=== PATIENT | female | born 1935 | race Caucasian/White ===

== ENCOUNTER → 2017-08-11 | Outpatient (CLI) | payer MEDICARE, OTHER, MEDICAID ==
[~2017-08-11] MED LIST: ACE3 PO; ACET-2031 PO; ASP325 PO; BRIN8DRO OP; CITRAZINE PO; DAB150 PO; DICL1ADH TP; DIP25 PO; DIPH-740 PO; DUL30 PO; ESC10 PO; ESOM40CA42 PO; FLEXOR PATCH TP; IBU800 PO; IRBE1TAB24 PO; LATOD OS; LOPE-84 PO; LOR5 PO; LOSA-51 PO; MELO-149 PO; METF-527 PO; METO25TA91 PO; METO50TA PO; MOM PO; NIT3 PO; OMEP-218 PO; OXYC1TAB54 PO; PER PO; PRED5DRO34 OP; SIMV-44 PO; WARF-18 PO; WARF7.5T32 PO
[2017-08-11 08:36] LABS: LDL CHOLESTEROL 70 mg/dl
== END ==
LOC: ZZSPRING 01:51
PROVIDERS: ATTEND Family Medicine
DX: E78.5 Hyperlipidemia, unspecified (principal)
CPT/HCPCS: 36415; 82040; 82247; 82310; 82374; 82435; 82465; 82565; 82947; 83718; 84075; 84132; 84155; 84295; 84450; 84460; 84478; 84520

== ENCOUNTER → 2017-08-11 | Outpatient (CLI) | payer MEDICARE, OTHER, MEDICAID ==
[2017-08-11 08:39] LABS: INR 2.39
== END ==
LOC: ZZSPRING 01:51
PROVIDERS: ATTEND Internal Medicine Cardiovascular Disease
DX: Z51.81 Encounter for therapeutic drug level monitoring (principal); I48.0 Paroxysmal atrial fibrillation; Z79.01 Long term (current) use of anticoagulants
CPT/HCPCS: 85610

== ENCOUNTER → 2017-08-25 | Outpatient (CLI) | payer MEDICARE, OTHER, MEDICAID ==
[2017-08-25 08:50] LABS: INR 1.88
== END ==
LOC: ZZSPRING 03:13
PROVIDERS: ATTEND Internal Medicine
DX: Z51.81 Encounter for therapeutic drug level monitoring (principal); I48.0 Paroxysmal atrial fibrillation; Z79.01 Long term (current) use of anticoagulants
CPT/HCPCS: 36415; 85610

== ENCOUNTER → 2017-09-08 | Outpatient (CLI) | payer MEDICARE, OTHER, MEDICAID ==
[2017-09-08 08:56] LABS: INR 1.85
== END ==
LOC: ZZSPRING 02:03
PROVIDERS: ATTEND Internal Medicine
DX: Z51.81 Encounter for therapeutic drug level monitoring (principal); I48.0 Paroxysmal atrial fibrillation; Z79.01 Long term (current) use of anticoagulants
CPT/HCPCS: 36415; 85610

== ENCOUNTER → 2017-09-22 | Outpatient (CLI) | payer MEDICARE, OTHER, MEDICAID ==
[~2017-09-22] MED LIST changes: -WARF-18 PO; +WARF5TAB23 PO
[2017-09-22 08:50] LABS: INR 2.91
== END ==
LOC: ZZSPRING 03:01
PROVIDERS: ATTEND Internal Medicine Cardiovascular Disease
DX: Z51.81 Encounter for therapeutic drug level monitoring (principal); I48.0 Paroxysmal atrial fibrillation; Z79.01 Long term (current) use of anticoagulants
CPT/HCPCS: 36415; 85610

== ENCOUNTER → 2017-10-06 | Outpatient (CLI) | payer MEDICARE, OTHER, MEDICAID ==
[2017-10-06 09:05] LABS: INR 4.78
== END ==
LOC: ZZSPRING 00:39
PROVIDERS: ATTEND Internal Medicine Cardiovascular Disease
DX: Z51.81 Encounter for therapeutic drug level monitoring (principal); I48.0 Paroxysmal atrial fibrillation; I10 Essential (primary) hypertension; Z79.01 Long term (current) use of anticoagulants
CPT/HCPCS: 36415; 82310; 82374; 82435; 82565; 82947; 84132; 84295; 84520; 85610

== ENCOUNTER → 2017-10-13 | Outpatient (CLI) | payer MEDICARE, OTHER, MEDICAID ==
[~2017-10-13] MED LIST changes: +WARF7.5T13 PO; -WARF7.5T32 PO
[2017-10-13 08:59] LABS: INR 2.86
== END ==
LOC: ZZSPRING 00:19
PROVIDERS: ATTEND Internal Medicine
DX: Z51.81 Encounter for therapeutic drug level monitoring (principal); I48.0 Paroxysmal atrial fibrillation; Z79.01 Long term (current) use of anticoagulants
CPT/HCPCS: 36415; 85610

== ENCOUNTER → 2017-10-20 | Outpatient (CLI) | payer MEDICARE, OTHER, MEDICAID ==
[2017-10-20 08:51] LABS: INR 3.06
== END ==
LOC: ZZSPRING 03:07
PROVIDERS: ATTEND Internal Medicine Cardiovascular Disease
DX: Z51.81 Encounter for therapeutic drug level monitoring (principal); I48.0 Paroxysmal atrial fibrillation; Z79.01 Long term (current) use of anticoagulants
CPT/HCPCS: 36415; 85610

== ENCOUNTER → 2017-10-27 | Outpatient (CLI) | payer MEDICARE, OTHER, MEDICAID ==
[2017-10-27 08:34] LABS: INR 1.97
== END ==
LOC: ZZSPRING 10-26 09:32
PROVIDERS: ATTEND Internal Medicine Cardiovascular Disease
DX: Z51.81 Encounter for therapeutic drug level monitoring (principal); I48.0 Paroxysmal atrial fibrillation; Z79.01 Long term (current) use of anticoagulants
CPT/HCPCS: 36415; 85610

== ENCOUNTER → 2017-11-03 | Outpatient (CLI) | payer MEDICARE, OTHER, MEDICAID | LOC: ZZSPRING 02:43 | PROVIDERS: ATTEND Internal Medicine Cardiovascular Disease | DX: Z51.81 Encounter for therapeutic drug level monitoring (principal); I48.0 Paroxysmal atrial fibrillation; Z79.01 Long term (current) use of anticoagulants ==

== ENCOUNTER → 2017-11-03 | Outpatient (CLI) | payer MEDICARE, OTHER, MEDICAID ==
[2017-11-03 08:40] LABS: INR 2.12
== END ==
LOC: ZZSPRING 02:42
PROVIDERS: ATTEND Internal Medicine Interventional Cardiology
DX: Z51.81 Encounter for therapeutic drug level monitoring (principal); I48.0 Paroxysmal atrial fibrillation; Z79.01 Long term (current) use of anticoagulants
CPT/HCPCS: 36415; 85610

== ENCOUNTER → 2017-11-17 | Outpatient (CLI) | payer MEDICARE, OTHER, MEDICAID ==
[2017-11-17 08:59] LABS: INR 2.68
== END ==
LOC: ZZSPRING 01:48
PROVIDERS: ATTEND Internal Medicine Cardiovascular Disease
DX: Z51.81 Encounter for therapeutic drug level monitoring (principal); I48.0 Paroxysmal atrial fibrillation; Z79.01 Long term (current) use of anticoagulants
CPT/HCPCS: 36415; 85610

== ENCOUNTER → 2017-12-01 | Outpatient (CLI) | payer MEDICARE, OTHER, MEDICAID ==
[2017-12-01 09:05] LABS: INR 2.82
== END ==
LOC: ZZSPRING 01:10
PROVIDERS: ATTEND Internal Medicine Cardiovascular Disease
DX: Z51.81 Encounter for therapeutic drug level monitoring (principal); I48.0 Paroxysmal atrial fibrillation; Z79.01 Long term (current) use of anticoagulants
CPT/HCPCS: 36415; 85610

== ENCOUNTER → 2017-12-15 | Outpatient (CLI) | payer MEDICARE, OTHER, MEDICAID ==
[~2017-12-15] MED LIST changes: +ACET-1966 PO; +BARIUM SULFATE 176 GM BTL PO ONE; +BARIUM SULFATE 340 GM POWD ONE; +DEXT1DRO16 OP; +DICL100G39 TP; +DIFL5DRO3 OP; +GUAI118L70 PO; +HYDR-4309 PO; +LOPE2CAP88 PO; +LOSA-54 PO; +MAG-66 PO; +MAGN1TAB2 PO; +METH-280 PO; +METO25TA93 PO; +METR45CR10 TP; +NALO25TA PO; +SODI15DR18 OP; +TOBDOO OD; +TRIA15OI20 TP; +[UNRECOGNIZED DRUG - OTHER] TOP
--- NOTE | 2017-12-15 16:39 | RADIOLOGY IMAGING REPORT ---
[place] [facility] [place]IENT NAME: Radha Flor : 1935 MR: [id number] V: [id number] EXAM DATE: ORDERING PHYSICIAN: JOSE BASHIR TECHNOLOGIST: Location: [facility] - [place] Patient: Radha Flor : 1935 Visit/Account:[id number] Date of Sevice: 12/15/2017 Exam type: ESOPHAGRAM History: Belching, dysphasia Comparison: None. Findings: Air contrast esophagram was performed with thick and thin barium. There is very mild narrowing in th e upper cervical esophagus. 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 The lower half the esophagus appeared mildly narrowed although may in part be related to eduar zamora's difficulty in swallowing a large bolus of barium and her inability to maintain the air for th e air contrast portion examination. A large amount of gastroesophageal reflux was observed. A 12 mm barium tablet did pass freely into the stomach. The fluoroscopy dose area product was 547.67 micro- Keller per meter squared IMPRESSION: 1. 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 A 12 mm barium tablet did pass freely into the stomach Large amount of gastroesophageal reflux was observed Report Dictated By: Farhana Bahena MD at 12/15/2017 4:32 PM Report E-Signed By: Farhana Bahena MD at 12/15/2017 4:35 PM WSN:[email or web address]
== END ==
LOC: RAD 01:16
PROVIDERS: ATTEND Surgery
DX: K22.2 Esophageal obstruction (principal); K21.9 Gastro-esophageal reflux disease without esophagitis
CPT/HCPCS: 74220

== ENCOUNTER → 2017-12-15 | Outpatient (CLI) | payer MEDICARE, OTHER ==
[~2017-12-15] MED LIST changes: -BARIUM SULFATE 176 GM BTL PO ONE; -BARIUM SULFATE 340 GM POWD ONE
[2017-12-15 09:09] LABS: INR 1.95
== END ==
LOC: ZZSPRING 00:54
PROVIDERS: ATTEND Internal Medicine Cardiovascular Disease
DX: Z51.81 Encounter for therapeutic drug level monitoring (principal); I48.0 Paroxysmal atrial fibrillation; Z79.01 Long term (current) use of anticoagulants
CPT/HCPCS: 36415; 85610

== ENCOUNTER → 2017-12-22 | Outpatient (CLI) | payer MEDICARE, OTHER, MEDICAID ==
[2017-12-22 09:09] LABS: LDL CHOLESTEROL 95 mg/dl
== END ==
LOC: ZZSPRING 01:03
PROVIDERS: ATTEND Internal Medicine
DX: I48.0 Paroxysmal atrial fibrillation (principal); I10 Essential (primary) hypertension; E78.00 Pure hypercholesterolemia, unspecified; R06.02 Shortness of breath
CPT/HCPCS: 36415; 82040; 82247; 82310; 82374; 82435; 82465; 82565; 82947; 83718; 84075; 84132; 84155; 84295; 84450; 84460; 84478; 84520

== ENCOUNTER → 2017-12-23 | Outpatient (CLI) | payer MEDICARE, OTHER, MEDICAID ==
[2017-12-23 12:25] LABS: INR 2.03
== END ==
LOC: LAB 11:50
PROVIDERS: ATTEND Internal Medicine
DX: Z51.81 Encounter for therapeutic drug level monitoring (principal); Z79.01 Long term (current) use of anticoagulants
CPT/HCPCS: 36415; 85610

== ENCOUNTER → 2017-12-30 | Outpatient (CLI) | payer MEDICARE, OTHER, MEDICAID | LOC: EDSTATUS 00:33 → ZZSPRING 00:34 | PROVIDERS: ATTEND Internal Medicine | DX: E78.00 Pure hypercholesterolemia, unspecified (principal); I10 Essential (primary) hypertension; I48.0 Paroxysmal atrial fibrillation ==

== ENCOUNTER → 2018-01-05 | Outpatient (CLI) | payer MEDICARE, OTHER, MEDICAID ==
[~2018-01-05] VITALS: Ht 170.2 cm; Wt 83.5 kg
[~2018-01-05] MED LIST changes: +METO-257 PO; +OXYGENHOME INH
[2018-01-05 08:34] LABS: INR 2.23
== END ==
LOC: ZZSPRING 01:28
PROVIDERS: ATTEND Internal Medicine
DX: Z51.81 Encounter for therapeutic drug level monitoring (principal); I48.0 Paroxysmal atrial fibrillation
CPT/HCPCS: 36415; 85610

== ENCOUNTER 2018-01-13 02:41 | Day surgery (SDC) | payer MEDICARE, OTHER, MEDICAID ==
[~2018-01-13] VITALS: Ht 170.2 cm; Wt 83.0 kg
[2018-01-13] MEDS ORDERED: PROPOFOL EMUL(*) 10MG/ML 20 ML 20 ML ONE (07:10)
[2018-01-13] MEDS ORDERED: NORMOSOL R SOLN(*) 1000 ML BAG 1,000 ML IV PRN (09:10)
[2018-01-13] MEDS ORDERED: LIDOCAINE/SOD BICARB 8.4% SYR ID ONE (09:10)
[2018-01-13 09:20] VITALS: BP 131/58
[2018-01-13 11:19] VITALS: BP 134/59
--- NOTE | 2018-01-13 11:24 | Short(Outpt) Discharge Summary ---
Discharge Summary Reason for Hosp/Final Diag: (1) Dysphagia Status: Chronic Hospital Course & Plan: EGD with esophageal dilation completed without problems. Departure Discharge to: Home, Self Care Discharge Instructions Home Meds Reported Medications Oxygen (OXYGEN) Inha, 3 L INH DAILY, L 01/06/18 Warfarin Sodium (WARFARIN SODIUM) 5 Mg Tablet, 7.5 MG PO QDAY, TAB 01/06/18 Warfarin Sodium (WARFARIN SODIUM) 5 Mg Tablet, 5 MG PO QDAY, TAB 01/06/18 Metoprolol Tartrate (METOPROLOL TARTRATE) 100 Mg Tablet, 1 TAB PO BID, TAB 01/06/18 Tobramycin/Dexamethasone (TOBRADEX EYE OINTMENT) 3.5 Gm Oint, 1 ABDOUL OD PRN, TUBE 12/11/17 [T Gel] No Conflict Check, 1 ABDOUL TOP 2XW 12/11/17 Mag Hydrox/Al Hydrox/Simeth (MAALOX MAXIMUM STRENGTH SUSP) 355 Ml Oral.susp, 15 ML PO Q4H Y for prn 12/11/17 Mag Hydrox/Al Hydrox/Simeth (MAALOX MAXIMUM STRENGTH SUSP) 355 Ml Oral.susp, 15 ML PO PRN 12/09/17 Hydrocodone Bit/Acetaminophen (NORCO 5-325 TABLET) 1 Each Tablet, 1 EACH PO Q4H , TAB 12/09/17 Sodium Chloride (GERALD-128) 15 Ml Drops, 1 DROP OP DIRECTED 1 drop TID L. eye 12/09/17 Naloxegol Oxalate (Movantik) 25 Mg Tablet, 1 TAB PO DIRECTED 12/09/17 Difluprednate (DUREZOL) 5 Ml Drops, 1 DROP OP QID 12/09/17 Magnesium Carbonate/Al Hydrox (ANTACID EXTRA STRENGTH CHW TAB) 1 Each Tab.chew, 1 EACH PO PRN, TAB.CHEW 12/09/17 Losartan/Hydrochlorothiazide (LOSARTAN-HCTZ 100-25 MG TAB) 1 Each Tablet, 1 EACH PO QDAY 12/09/17 Diphenhydramine Hcl (BENADRYL) 25 Mg Capsule, 25 MG PO PRN, CAPSULE 07/10/15 Diclofenac Epolamine (Flector) 30 Ea Adh..patch, 1 EA TP Q12H Y May apply 1 patch every 12 hours as needed for pain. 03/17/12 Discontinued Reported Medications Triamcinolone Acetonide 0.1% Oint 15 Gm Tube (TRIAMCINOLONE ACETONIDE 0.1% 15 GM TUBE) 15 Gm Oint...g., 1 ABDOUL TP BID, TUBE 12/11/17 Guaifenesin/Dextromethorphan (Robafen Dm Cgh-Chest Magen Liq) 100 Mg-10 Mg/5 Ml Liquid, 5 ML PO Q4-6H Y for COUGH 12/11/17 Metronidazole (METROCREAM) 45 Gm Cream..g., 1 ABDOUL TP BID 12/09/17 Methocarbamol (METHOCARBAMOL) 750 Mg Tablet, 1-2 TAB PO TID Y for prn 12/09/17 Loperamide Hcl (LOPERAMIDE) 2 Mg Capsule, 2 CAP PO PRN, CAPSULE 12/09/17 Diclofenac Sodium 1% Gel (VOLTAREN 1% GEL) 100 Gm Gel..gram., 1 ABDOUL TP PRN 12/09/17 Dextran 70/Hypromellose/Pf (ARTIFICIAL TEARS DROPS) 1 Each Droperette, 1 EACH OP PRN 12/09/17 Acetaminophen (TYLENOL) 325 Mg Tablet, 1-2 TAB PO QDAY, TAB 12/09/17 Metoprolol Tartrate (METOPROLOL TARTRATE) 25 Mg Tablet, 1 TAB PO BID, TAB 12/09/17 Prednisolone Acetate (PREDNISOLONE ACETATE) 5 Ml Drops.susp, 1 DROP OP QDAY 12/17/15 Metformin Hcl (GLUMETZA) 1,000 Mg Mrrcdhe24w, 1000 MG PO QDAY 12/17/15 Warfarin Sodium (WARFARIN SODIUM) 5 Mg Tablet, 5 MG PO QM,Tu,W,Th,F,Sa 07/10/15 Al Hydroxide/Mg Hydroxide (Milk Of Magnesia) 30 Ml Susp, 30 ML PO Q8H Y Try first, for constipation. 03/17/12 Nitroglycerin (Nitrostat) 0.3 Mg Subl, 0.4 MG PO PRN, 0 Refills 02/21/11 Discontinued Scripts Esomeprazole Magnesium (NEXIUM) 40 Mg Capsule., 1 CAP PO QDAY, #60 CAP 6 Refills Prov:JOSE BASHIR MD 12/17/15 Diet: Regular Activity: As Tolerated Special Instructions: Your EGD was completed without problems and I stretched out your esophagus. I didn't find any cancers or other problems. My office will call you in the next week to see how you're doing and if you're still having your symptoms due to your esophagus then we'll schedule a follow up appointment but if you're feeling better then you don't need to follow up with me unless you develop further problems down the road. You may restart the coumadin (warfarin) immediately as previously prescribed. Problem Qualifiers (1) Dysphagia: Dysphagia type: pharyngeal phase Qualified Codes: R13.13 - Dysphagia, pharyngeal phase JOSE BASHIR MD Jan 13, 2018 11:24
[2018-01-13 11:30] VITALS: BP 117/59
[2018-01-13 11:39] VITALS: BP 129/56
[2018-01-13 11:40] VITALS: BP 121/74
== END 2018-01-13 11:59 | disposition home or self-care (01) ==
LOC: OR 02:41
PROVIDERS: ATTEND Surgery
DX: K22.5 Diverticulum of esophagus, acquired (principal); K44.9 Diaphragmatic hernia without obstruction or gangrene; E78.5 Hyperlipidemia, unspecified; I10 Essential (primary) hypertension; I48.2 Chronic atrial fibrillation; J44.9 Chronic obstructive pulmonary disease, unspecified; E11.9 Type 2 diabetes mellitus without complications; Z98.1 Arthrodesis status; Z90.49 Acquired absence of other specified parts of digestive tract; Z90.710 Acquired absence of both cervix and uterus
CPT/HCPCS: 43248; J2704

== ENCOUNTER → 2018-01-26 | Outpatient (CLI) | payer MEDICARE, OTHER, MEDICAID ==
[2018-01-26 08:16] LABS: INR 2.18
== END ==
LOC: ZZSPRING 00:03
PROVIDERS: ATTEND Internal Medicine Cardiovascular Disease
DX: Z51.81 Encounter for therapeutic drug level monitoring (principal); Z79.01 Long term (current) use of anticoagulants; I48.0 Paroxysmal atrial fibrillation
CPT/HCPCS: 36415; 85610

== ENCOUNTER → 2018-02-16 | Outpatient (CLI) | payer MEDICARE, OTHER, MEDICAID ==
[2018-02-16 08:50] LABS: INR 2.56
== END ==
LOC: ZZSPRING 00:20
PROVIDERS: ATTEND Internal Medicine
DX: Z51.81 Encounter for therapeutic drug level monitoring (principal); Z79.01 Long term (current) use of anticoagulants; I48.0 Paroxysmal atrial fibrillation
CPT/HCPCS: 36415; 85610

== ENCOUNTER → 2018-03-16 | Outpatient (CLI) | payer MEDICARE, OTHER, MEDICAID ==
[2018-03-16 08:50] LABS: INR 2.2
== END ==
LOC: ZZSPRING 00:57
PROVIDERS: ATTEND Internal Medicine Cardiovascular Disease
DX: Z51.81 Encounter for therapeutic drug level monitoring (principal); Z79.01 Long term (current) use of anticoagulants; I48.0 Paroxysmal atrial fibrillation
CPT/HCPCS: 36415; 85610

== ENCOUNTER → 2018-04-20 | Outpatient (CLI) | payer MEDICARE, MEDICAID ==
[2018-04-20 08:46] LABS: INR 3.47
== END ==
LOC: ZZSPRING 06:52
PROVIDERS: ATTEND Internal Medicine
DX: I48.0 Paroxysmal atrial fibrillation (principal); Z79.01 Long term (current) use of anticoagulants
CPT/HCPCS: 36415; 85610

== ENCOUNTER → 2018-04-27 | Outpatient (CLI) | payer MEDICARE, MEDICAID ==
[2018-04-27 08:21] LABS: INR 2.08
== END ==
LOC: ZZSPRING 02:01
PROVIDERS: ATTEND Registered Nurse
DX: Z51.81 Encounter for therapeutic drug level monitoring (principal); I48.0 Paroxysmal atrial fibrillation
CPT/HCPCS: 36415; 85610

== ENCOUNTER → 2018-05-03 | Outpatient (CLI) | payer MEDICARE, MEDICAID ==
--- NOTE | 2018-05-03 11:43 | RADIOLOGY IMAGING REPORT ---
[place] [facility] [place] Radha Flor : 1935 MR: [id number] V: [id number] EXAM DATE: ORDERING PHYSICIAN: DOMINGUEZ ROSA TECHNOLOGIST: Location: [facility] - [place] Patient: Radha Flor : 1935 Visit/Account:[id number] Date of Sevice: 05/03/2018 Study: Frontal and lateral views of the chest Indication: Hypoxemia, shortness of breath Comparison study: None Findings: PA and lateral views of the chest demonstrate no evidence of acute infiltrate. There is no evidence of pleural effusion. There is no evidence of pneumothorax. The mediastinal, cardiac, and diaphragmatic contours are unremarkable. The visualized bony structures are unremarkable. The patient is status post left glenohumeral joint r eplacement. IMPRESSION: Unremarkable chest. Report Dictated By: Renzo Paige at 05/03/2018 11:37 AM Report E-Signed By: Renzo Paige at 05/03/2018 11:39 AM WSN:[id number]
== END ==
LOC: RAD 10:51
PROVIDERS: ATTEND Internal Medicine
DX: R09.02 Hypoxemia (principal); R06.02 Shortness of breath; J44.9 Chronic obstructive pulmonary disease, unspecified
CPT/HCPCS: 71046

== ENCOUNTER → 2018-05-04 | Outpatient (CLI) | payer MEDICARE, MEDICAID ==
[2018-05-04 08:26] LABS: INR 2.44
== END ==
LOC: ZZSPRING 00:57
PROVIDERS: ATTEND Internal Medicine
DX: Z51.81 Encounter for therapeutic drug level monitoring (principal); I48.0 Paroxysmal atrial fibrillation
CPT/HCPCS: 36415; 85610

== ENCOUNTER → 2018-05-18 | Outpatient (CLI) | payer MEDICARE, OTHER, MEDICAID ==
[~2018-05-18] MED LIST changes: +CLOB50SO11 TP; -HYDR-4309 PO; +HYDR-653 PO; +HYDR30CR10 TP
[2018-05-18 08:56] LABS: INR 3.1
== END ==
LOC: ZZSPRING 00:53
PROVIDERS: ATTEND Internal Medicine Cardiovascular Disease
DX: Z51.81 Encounter for therapeutic drug level monitoring (principal); I48.0 Paroxysmal atrial fibrillation; Z79.01 Long term (current) use of anticoagulants
CPT/HCPCS: 36415; 85610

== ENCOUNTER → 2018-06-01 | Outpatient (CLI) | payer MEDICARE, OTHER, MEDICAID ==
[2018-06-01 08:24] LABS: INR 3.37
== END ==
LOC: ZZSPRING 02:45
DX: Z51.81 Encounter for therapeutic drug level monitoring (principal); I48.0 Paroxysmal atrial fibrillation; Z79.01 Long term (current) use of anticoagulants
CPT/HCPCS: 36415; 85610

== ENCOUNTER → 2018-06-15 | Outpatient (CLI) | payer MEDICARE, OTHER, MEDICAID ==
[2018-06-15 08:12] LABS: INR 3.91
== END ==
LOC: ZZSPRING 01:36
PROVIDERS: ATTEND Internal Medicine Cardiovascular Disease
DX: Z51.81 Encounter for therapeutic drug level monitoring (principal); Z79.01 Long term (current) use of anticoagulants; I48.91 Unspecified atrial fibrillation
CPT/HCPCS: 36415; 85610

== ENCOUNTER → 2018-06-21 | Outpatient (REF) | payer MEDICARE, OTHER, MEDICAID | LOC: ZZSPRING 23:24 | PROVIDERS: ATTEND Family Medicine | DX: N39.0 Urinary tract infection, site not specified (principal); B96.89 Other specified bacterial agents as the cause of diseases classified elsewhere | CPT/HCPCS: 81001; 87088 ==

== ENCOUNTER → 2018-06-22 | Outpatient (CLI) | payer MEDICARE, OTHER, MEDICAID ==
[2018-06-22 08:20] LABS: INR 3.48
== END ==
LOC: ZZSPRING 01:41
PROVIDERS: ATTEND Internal Medicine Cardiovascular Disease
DX: Z51.81 Encounter for therapeutic drug level monitoring (principal); Z79.01 Long term (current) use of anticoagulants; I48.0 Paroxysmal atrial fibrillation
CPT/HCPCS: 36415; 85610

== ENCOUNTER → 2018-06-29 | Outpatient (REF) | payer MEDICARE, OTHER, MEDICAID | LOC: ZZSPRING 21:49 | PROVIDERS: ATTEND Family Medicine | DX: N39.0 Urinary tract infection, site not specified (principal) | CPT/HCPCS: 81001 ==

== ENCOUNTER → 2018-06-29 | Outpatient (CLI) | payer MEDICARE, OTHER, MEDICAID ==
[2018-06-29 08:21] LABS: INR 2.01
== END ==
LOC: ZZSPRING 01:08
PROVIDERS: ATTEND Internal Medicine Cardiovascular Disease
DX: Z51.81 Encounter for therapeutic drug level monitoring (principal); Z79.01 Long term (current) use of anticoagulants; I48.0 Paroxysmal atrial fibrillation
CPT/HCPCS: 36415; 85610

== ENCOUNTER → 2018-07-06 | Outpatient (CLI) | payer MEDICARE, OTHER, MEDICAID ==
[2018-07-06 08:45] LABS: INR 1.65
== END ==
LOC: ZZSPRING 00:57
PROVIDERS: ATTEND Internal Medicine Cardiovascular Disease
DX: Z51.81 Encounter for therapeutic drug level monitoring (principal); Z79.01 Long term (current) use of anticoagulants; I48.0 Paroxysmal atrial fibrillation
CPT/HCPCS: 36415; 85610

== ENCOUNTER → 2018-07-08 | Outpatient (REF) | payer MEDICARE, OTHER, MEDICAID | LOC: ZZSENDIN 09:55 | PROVIDERS: ATTEND Family Medicine | DX: N39.0 Urinary tract infection, site not specified (principal); B96.20 Unspecified Escherichia coli [E. coli] as the cause of diseases classified elsewhere | CPT/HCPCS: 81001; 87077; 87088; 87186 ==

== ENCOUNTER → 2018-07-13 | Outpatient (CLI) | payer MEDICARE, OTHER, MEDICAID ==
[2018-07-13 08:31] LABS: INR 2.4
== END ==
LOC: ZZSPRING 01:23
PROVIDERS: ATTEND Internal Medicine
DX: Z51.81 Encounter for therapeutic drug level monitoring (principal); Z79.01 Long term (current) use of anticoagulants; I48.0 Paroxysmal atrial fibrillation
CPT/HCPCS: 36415; 85610

== ENCOUNTER → 2018-08-10 | Outpatient (CLI) | payer MEDICARE, OTHER, MEDICAID ==
[2018-08-10 08:22] LABS: INR 1.52
== END ==
LOC: ZZSPRING 01:36
PROVIDERS: ATTEND Internal Medicine Cardiovascular Disease
DX: Z51.81 Encounter for therapeutic drug level monitoring (principal); Z79.01 Long term (current) use of anticoagulants; I48.0 Paroxysmal atrial fibrillation
CPT/HCPCS: 36415; 85610

== ENCOUNTER → 2018-08-19 | Outpatient (CLI) | payer MEDICARE, OTHER, MEDICAID ==
[2018-08-19 12:10] LABS: INR 1.4
== END ==
LOC: LAB 11:42
PROVIDERS: ATTEND Internal Medicine Cardiovascular Disease
DX: Z51.81 Encounter for therapeutic drug level monitoring (principal); Z79.01 Long term (current) use of anticoagulants; I48.0 Paroxysmal atrial fibrillation
CPT/HCPCS: 36415; 85610

== ENCOUNTER → 2018-08-31 | Outpatient (CLI) | payer MEDICARE, OTHER, MEDICAID ==
[~2018-08-31] MED LIST changes: +KETO120S14 TP
[2018-08-31 08:30] LABS: INR 2.24
== END ==
LOC: ZZSPRING 01:19
PROVIDERS: ATTEND Internal Medicine
DX: Z51.81 Encounter for therapeutic drug level monitoring (principal); Z79.01 Long term (current) use of anticoagulants; I48.0 Paroxysmal atrial fibrillation
CPT/HCPCS: 36415; 85610

== ENCOUNTER → 2018-09-14 | Outpatient (CLI) | payer MEDICARE, OTHER, MEDICAID ==
[2018-09-14 08:31] LABS: INR 2.38
== END ==
LOC: ZZSPRING 00:35
PROVIDERS: ATTEND Internal Medicine Cardiovascular Disease
DX: Z51.81 Encounter for therapeutic drug level monitoring (principal); Z79.01 Long term (current) use of anticoagulants; I48.0 Paroxysmal atrial fibrillation
CPT/HCPCS: 36415; 85610

== ENCOUNTER → 2018-09-24 | Outpatient (REF) | payer MEDICARE, OTHER, MEDICAID | LOC: ZZSENDIN 12:42 | PROVIDERS: ATTEND Family Medicine | DX: M54.5 Low back pain (principal); B96.20 Unspecified Escherichia coli [E. coli] as the cause of diseases classified elsewhere | CPT/HCPCS: 81001; 87077; 87088; 87186 ==

== ENCOUNTER → 2018-10-07 | Outpatient (REF) | payer MEDICARE, OTHER, MEDICAID | LOC: ZZSPRING 10:54 | PROVIDERS: ATTEND Family Medicine | DX: N39.0 Urinary tract infection, site not specified (principal) | CPT/HCPCS: 81001; 87088 ==

== ENCOUNTER → 2018-10-12 | Outpatient (CLI) | payer MEDICARE, OTHER, MEDICAID ==
[2018-10-12 08:43] LABS: INR 2.54
== END ==
LOC: ZZSPRING 02:17
PROVIDERS: ATTEND Internal Medicine Cardiovascular Disease
DX: Z51.81 Encounter for therapeutic drug level monitoring (principal); I48.0 Paroxysmal atrial fibrillation; Z79.01 Long term (current) use of anticoagulants
CPT/HCPCS: 36415; 85610

== ENCOUNTER → 2018-10-25 | Outpatient (REF) | payer MEDICARE, OTHER, MEDICAID | LOC: ZZSPRING 20:19 | PROVIDERS: ATTEND Family Medicine | DX: N39.0 Urinary tract infection, site not specified (principal) | CPT/HCPCS: 81001; 87088 ==

== ENCOUNTER → 2018-11-23 | Outpatient (CLI) | payer MEDICARE, OTHER, MEDICAID ==
[2018-11-23 08:39] LABS: INR 2.97
== END ==
LOC: ZZSPRING 02:40
DX: Z51.81 Encounter for therapeutic drug level monitoring (principal); I48.0 Paroxysmal atrial fibrillation
CPT/HCPCS: 36415; 85610

== ENCOUNTER → 2018-12-21 | Outpatient (CLI) | payer MEDICARE, OTHER, MEDICAID ==
[2018-12-21 09:02] LABS: LDL CHOLESTEROL 120 mg/dl
== END ==
LOC: ZZSPRING 13:00
PROVIDERS: ATTEND Internal Medicine
DX: E78.00 Pure hypercholesterolemia, unspecified (principal); I10 Essential (primary) hypertension; I48.0 Paroxysmal atrial fibrillation
CPT/HCPCS: 36415; 82040; 82247; 82310; 82374; 82435; 82465; 82565; 82947; 83718; 84075; 84132; 84155; 84295; 84450; 84460; 84478; 84520

== ENCOUNTER → 2018-12-30 | Outpatient (CLI) | payer MEDICARE, OTHER, MEDICAID ==
--- NOTE | 2018-12-30 15:31 | RADIOLOGY IMAGING REPORT ---
FACILITY: [facility] - [place], [place] PATIENT NAME: Radha Flor : 1935 MR: [id number] V: [id number] EXAM DATE: ORDERING PHYSICIAN: ODILON SCHNEIDER TECHNOLOGIST: Location: [facility] [place] Patient: Radha Flor : 1935 Visit/Account:[id number] Date of Sevice: 12/30/2018 Exam type: CERVICAL SPINE 2 OR 3 VIEW History: Neck pain Comparison: August 19, 2016. Findings: Three views were submitted.. . The neck is held in flexion which appears to occur at the C7-T2 region. There are postsurgical ch anges with anterior plate and screws at C5-6 and anterior interbody fixation device at C6-7. There i s mild to moderate disc space narrowing from C3 to C5. There is no evidence of prevertebral soft tis abbie swelling IMPRESSION: 1. 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
== END ==
LOC: RAD 13:45
PROVIDERS: ATTEND Family Medicine
DX: M47.892 Other spondylosis, cervical region (principal); Z98.890 Other specified postprocedural states
CPT/HCPCS: 72040

== ENCOUNTER → 2019-01-04 | Outpatient (CLI) | payer MEDICARE, OTHER, MEDICAID ==
[2019-01-04 09:13] LABS: INR 3.5
== END ==
LOC: EDSTATUS 07:10 → LAB 07:14
PROVIDERS: ATTEND Registered Nurse
DX: Z51.81 Encounter for therapeutic drug level monitoring (principal); I48.0 Paroxysmal atrial fibrillation
CPT/HCPCS: 36415; 85610

== ENCOUNTER → 2019-01-18 | Outpatient (CLI) | payer MEDICARE, OTHER, MEDICAID ==
[2019-01-18 08:52] LABS: INR 3.96
== END ==
LOC: ZZSPRING 01:39
PROVIDERS: ATTEND Internal Medicine Cardiovascular Disease
DX: Z51.81 Encounter for therapeutic drug level monitoring (principal); I48.0 Paroxysmal atrial fibrillation
CPT/HCPCS: 36415; 85610

== ENCOUNTER → 2019-02-01 | Outpatient (CLI) | payer MEDICARE, OTHER, MEDICAID ==
[2019-02-01 08:52] LABS: INR 5.37
== END ==
LOC: ZZSPRING 00:02
PROVIDERS: ATTEND Internal Medicine Cardiovascular Disease
DX: Z51.81 Encounter for therapeutic drug level monitoring (principal); I48.0 Paroxysmal atrial fibrillation
CPT/HCPCS: 36415; 85610

== ENCOUNTER → 2019-02-04 | Outpatient (CLI) | payer MEDICARE, OTHER, MEDICAID ==
[~2019-02-04] MED LIST changes: +RANI150C17 PO
[2019-02-04 10:19] LABS: INR 2.02
== END ==
LOC: LAB 09:16
PROVIDERS: ATTEND Internal Medicine
DX: Z51.81 Encounter for therapeutic drug level monitoring (principal); I48.91 Unspecified atrial fibrillation; Z79.01 Long term (current) use of anticoagulants
CPT/HCPCS: 36415; 85610

== ENCOUNTER → 2019-02-08 | Outpatient (CLI) | payer MEDICARE, OTHER, MEDICAID ==
[2019-02-08 09:04] LABS: INR 2.49
== END ==
LOC: ZZSPRING 01:04
PROVIDERS: ATTEND Internal Medicine Cardiovascular Disease
DX: Z51.81 Encounter for therapeutic drug level monitoring (principal); I48.0 Paroxysmal atrial fibrillation
CPT/HCPCS: 36415; 85610

== ENCOUNTER → 2019-02-08 | Outpatient (CLI) | payer MEDICARE, OTHER, MEDICAID ==
--- NOTE | 2019-02-08 12:04 | EKG ---
FACILITY: [facility] PATIENT NAME: Radha HUMPHREYS : [id number] MR: [id number] V: [id number] EXAM DATE: ORDERING PHYSICIAN: JOSE BASHIR TECHNOLOGIST: REYNA Houston Reason : PRE OP CLEARANCE Blood Pressure : / mmHG Vent. Rate : 060 BPM Atrial Rate : 060 BPM P-R Int : 194 ms QRS Dur : 098 ms QT Int : 436 ms P-R-T Axes : 030 -33 -11 degrees QTc Int : 436 ms Normal sinus rhythm with sinus arrhythmia Left axis deviation T wave abnormality, consider anterolateral ischemia Abnormal ECG When compared with ECG of 10-JUL-2015 06:51, No significant change was found Confirmed by Clay Gutierrez ([id number]) on 02/09/2019 6:53:39 AM Referred By: KRYSTEN Confirmed By:Clay Richter
[2019-02-08 12:13] LABS: PLATELET COUNT, AUTOMATED 232 K/uL (150-450)
== END ==
LOC: LAB 11:37
PROVIDERS: ATTEND Surgery
DX: I48.91 Unspecified atrial fibrillation (principal); I10 Essential (primary) hypertension
CPT/HCPCS: 36415; 82310; 82374; 82435; 82565; 82947; 84132; 84295; 84520; 85025

== ENCOUNTER → 2019-02-15 | Outpatient (CLI) | payer MEDICARE, OTHER, MEDICAID ==
[~2019-02-15] MED LIST changes: +BACOO OP; +DEXT1DRO15 OP; +MAG-65; +NALO25TA; +SODI3.5O14 OP; +[UNRECOGNIZED DRUG - CODE]
[2019-02-15 08:33] LABS: INR 3.06
== END ==
LOC: ZZSPRING 00:35
PROVIDERS: ATTEND Internal Medicine
DX: Z51.81 Encounter for therapeutic drug level monitoring (principal); I48.0 Paroxysmal atrial fibrillation
CPT/HCPCS: 36415; 85610

== ENCOUNTER → 2019-03-01 | Outpatient (CLI) | payer MEDICARE, OTHER, MEDICAID ==
[2019-03-01 09:25] LABS: INR 2.06
== END ==
LOC: ZZSPRING 02:01
PROVIDERS: ATTEND Internal Medicine Cardiovascular Disease
DX: Z51.81 Encounter for therapeutic drug level monitoring (principal); I48.0 Paroxysmal atrial fibrillation; Z79.01 Long term (current) use of anticoagulants
CPT/HCPCS: 36415; 85610

== ENCOUNTER 2019-03-16 02:07 | Day surgery (SDC) | payer MEDICARE, OTHER, MEDICAID ==
[~2019-03-16] VITALS: Ht 170.2 cm; Wt 81.6 kg
[~2019-03-16 02:07] MED LIST changes: +LOSA100T75 PO
[2019-03-16] MEDS ORDERED: PROPOFOL EMUL(*) 10MG/ML 20 ML 40 ML ONE (07:01)
[2019-03-16] MEDS ORDERED: LIDOCAINE/SOD BICARB 8.4% SYR ID ONE (09:30)
[2019-03-16] MEDS ORDERED: NORMOSOL R SOLN(*) 1000 ML BAG 1,000 ML IV PRN (09:30)
[2019-03-16 10:04] VITALS: BP 120/56
[2019-03-16 10:52] LABS: INR 0.99
[2019-03-16 11:44] VITALS: BP 113/57
--- NOTE | 2019-03-16 11:51 | Short(Outpt) Discharge Summary ---
Discharge Summary Reason for Hosp/Final Diag: (1) Dysphagia Status: Chronic Hospital Course & Plan: EGD with dilation completed without problems. (2) Belching Status: Chronic Departure Discharge to: Home, Self Care Discharge Instructions Home Meds Reported Medications Losartan Potassium (LOSARTAN POTASSIUM) 100 Mg Tablet, 100 MG PO QDAY 03/14/19 Sodium Chloride (GERALD-128) 3.5 Gm Oint...g., 1 DROP OP HS 02/16/19 Naloxegol Oxalate (Movantik) 25 Mg Tablet 02/16/19 Metoprolol Tartrate (METOPROLOL TARTRATE) 25 Mg Tablet, 1.5 TAB PO BID, TAB 02/16/19 Oxygen (OXYGEN) Inha, 3 L INH DAILY, L 01/06/18 Warfarin Sodium (WARFARIN SODIUM) 5 Mg Tablet, 5 MG PO 4XWEEK, TAB 01/06/18 Warfarin Sodium (WARFARIN SODIUM) 5 Mg Tablet, 2.5 MG PO 3XW, TAB 01/06/18 Sodium Chloride (GERALD-128) 15 Ml Drops, 1 DROP OP DIRECTED 1 drop TID L. eye 12/09/17 Difluprednate (DUREZOL) 5 Ml Drops, 1-2 DROP OP BID 12/09/17 Diclofenac Epolamine (Flector) 30 Ea Adh..patch, 1 EA TP Q12H PRN for PAIN May apply 1 patch every 12 hours as needed for pain. 03/17/12 Discontinued Reported Medications Guaifenesin/Dextromethorphan (Robafen Dm Cough Syrup) 100 Mg-10 Mg/5 Ml Liquid 02/16/19 Mag Hydrox/Aluminum Hyd/Simeth (Maalox Advanced Suspension) 200 Mg-200 Mg-20 Mg/5 Ml Oral.susp 02/16/19 Magnesium Hydroxide (MILK OF MAGNESIA) 400 Mg/5 Ml Oral.susp, 400 MG PO, BOTTLE 02/16/19 Methocarbamol (METHOCARBAMOL) 750 Mg Tablet, 750 MG PO QID 02/16/19 Loperamide Hcl (LOPERAMIDE) 2 Mg Capsule, 2 MG PO, CAPSULE 02/16/19 Bacitracin (BACITRACIN) 3.5 Gm Oint...g., 3.5 GM OP 02/16/19 Dextran 70/Hypromellose (ARTIFICIAL TEARS) 1 Each Droperette, 1 EACH OP 02/16/19 Acetaminophen (TYLENOL) 325 Mg Tablet, 325 MG PO PRN for PAIN, TAB 02/16/19 Metronidazole (METROCREAM) 45 Gm Cream..g., 0.75 ABDOUL TP BID 02/16/19 Tobramycin/Dexamethasone (TOBRADEX EYE OINTMENT) 3.5 Gm Oint, 1 ABDOUL OD PRN, TUBE 12/11/17 [T Gel] No Conflict Check, 1 ABDOUL TOP 2XW 12/11/17 Mag Hydrox/Al Hydrox/Simeth (MAALOX MAXIMUM STRENGTH SUSP) 355 Ml Oral.susp, 15 ML PO Q4H PRN for prn 12/11/17 Mag Hydrox/Al Hydrox/Simeth (MAALOX MAXIMUM STRENGTH SUSP) 355 Ml Oral.susp, 15 ML PO PRN 12/09/17 Hydrocodone Bit/Acetaminophen (NORCO 5-325 TABLET) 1 Each Tablet, 1 EACH PO Q4H, TAB 12/09/17 Magnesium Carbonate/Al Hydrox (ANTACID EXTRA STRENGTH CHW TAB) 1 Each Tab.chew, 1 EACH PO PRN, TAB.CHEW 12/09/17 Losartan/Hydrochlorothiazide (LOSARTAN-HCTZ 100-25 MG TAB) 1 Each Tablet, 1 EACH PO QDAY 12/09/17 Diphenhydramine Hcl (BENADRYL) 25 Mg Capsule, 25 MG PO PRN, CAPSULE 07/10/15 Discontinued Scripts Ketoconazole (KETOCONAZOLE) 120 Ml Shampoo, 1 ABDOUL TP DAILY for 30 Days, #120 TUBE 4 Refills Prov:OTILIA ADDISON NPC 03/03/19 Hydrocortisone 2.5 % 30 GM CREAM (Hydrocortisone 2.5 % 30 GM CREAM) 2.5 % Cream.appl, 1 ABDOUL TP BID for 30 Days, #1 TUBE 1 Refill Apply to face for 7-10 days then stop. Prov:OTILIA ADDISON NPC 03/03/19 Ranitidine Hcl (RANITIDINE HCL) 150 Mg Capsule, 1 CAP PO BID, #60 CAPSULE 6 Refills Prov:JOSE BASHIR MD 02/08/19 Triamcinolone Acetonide 0.1% Oint 15 Gm Tube (TRIAMCINOLONE ACETONIDE 0.1% 15 GM TUBE) 15 Gm Oint...g., 15 GM TP BID for 30 Days, #1 TUBE 2 Refills Prov:OTILIA ADDISON NPC 07/22/18 Clobetasol Propionate 0.05% Solution (CLOBETASOL PROPIONATE 0.05% SOLUTION) 50 Ml Solution, 1 ABDOUL TP BID for 30 Days, #1 BOT 1 Refill Prov:OTILIA ADDISON NPC 05/13/18 Diet: Regular Activity: As Tolerated Special Instructions: Your upper endoscopy was completed without problems. I didn't see any abnormalities in your upper GI tract. I dilated your esophagus. My office will call you in the next day or two to schedule a follow up appointment with me to see how you're doing after dilation. Problem Qualifiers (1) Dysphagia: Dysphagia type: esophageal phase Qualified Codes: R13.10 - Dysphagia, unspecified JOSE BASHIR MD Mar 16, 2019 11:51
[2019-03-16 12:00] VITALS: BP 160/94
[2019-03-16 12:20] VITALS: BP 130/110
[2019-03-16 12:23] VITALS: BP 134/73
--- NOTE | 2019-03-16 12:46 | NUR ---
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
== END 2019-03-16 13:00 | disposition home or self-care (01) ==
LOC: OR 02:07
PROVIDERS: ATTEND Surgery
DX: R14.2 Eructation (principal); I10 Essential (primary) hypertension; Z79.01 Long term (current) use of anticoagulants
CPT/HCPCS: 43248; 85610; J2704; C1769

== ENCOUNTER → 2019-03-22 | Outpatient (CLI) | payer MEDICARE, OTHER, MEDICAID ==
[2019-03-22 09:07] LABS: INR 1.16
== END ==
LOC: ZZSPRING 02:35
PROVIDERS: ATTEND Internal Medicine Cardiovascular Disease
DX: Z51.81 Encounter for therapeutic drug level monitoring (principal); I48.0 Paroxysmal atrial fibrillation
CPT/HCPCS: 36415; 85610